=== PATIENT | male | born 1980 | race Caucasian/White ===

== ENCOUNTER 2024-04-24 02:02 | Emergency (ER) | payer SELFPAY ==
[2024-04-24 02:15] VITALS: BP 142/101; PULSE 75; RESP 16; TEMP 36.6; BMI 29.7
[2024-04-24 02:38] LABS: Strep Grp A by PCR Rapid Positive (Negative)
--- NOTE | 2024-04-24 15:51 | ED.DENTAL ---
HPI - Dental/Oral General Chief complaint: Dental/Oral Stated complaint: sore, swollen throat, lt ear pain Source: patient Mode of arrival: Ambulatory History of Present Illness HPI Narrative: Patient left without being seen by provider Patient History Social History Smoking Status: Current every day smoker Smoking Status: Current every day smoker Substance Use Type: marijuana Exam Initial Vital Signs Initial Vital Signs: Vital Signs Temperature 97.9 F 04/24/24 02:15 Pulse Rate 75 04/24/24 02:15 Respiratory Rate 16 04/24/24 02:15 Blood Pressure 142/101 H 04/24/24 02:15 MDM - Dental/Oral Lab Data Labs: Lab Results 04/24/24 Range/Units 02:26 Group A Strep (PCR) Positive H (Negative) Discharge Plan Departure Patient Disposition: Left Without Being Seen Clinical Impression: Patient left without being seen
== END 2024-04-24 06:53 | disposition left against medical advice (07) ==
PROVIDERS: Emergency Provider Emergency Medicine; Family Provider Family Medicine
DX: J02.9 Acute pharyngitis, unspecified (principal); H92.02 Otalgia, left ear
CPT/HCPCS: 87651; 99281